=== PATIENT | male | born 1990 | race Caucasian/White ===

== ENCOUNTER 2017-02-21 01:20 | Emergency (ER) | payer SELFPAY ==
[~2017-02-21] VITALS: Ht 180.3 cm; Wt 68.0 kg
--- NOTE | ~2017-02-21 | CR72 ---
[facility] A Service of [facility] & [facility] RADIOLOGY TEXT RESULTS PATIENT: JEFFREY KWON LOCATION: [facility] : [birth year] UNIT #: [id number] AGE: [address]: Radhames Soriano DO SEX: M ORDER DR: [id number] [facility] [address] [place], [place] [address] [id number] E MR#: [id number] Acc #: [id number] NAME: JEFFREY KWON : 1990 SEX: M STUDY DATE/TIME: 02/21/2017 2:22 UNIT: [facility] ROOM: STUDY DESCRIPTION: CR Chest Single View Portable Attending Physician: Radhames Soriano D.O. Ordering Physician: Radhames Soriano D.O. Primary Care Physician: No Primary Care Physician MEDICAL IMAGING REPORT This report is preliminary unless electronic signature is present EXAM Chest x-ray 02/21/2017 HISTORY 26-year-old male in the ED after reported heroin overdose. Mental status changes. TECHNIQUE AP portable chest x-ray. FINDINGS The examination is negative. The lungs are expanded and clear. Heart size and pulmonary vascularity are normal. IMPRESSION Negative chest. Dictated by... Miguel Olivarez M.D. THIS IS AN ELECTRONICALLY VERIFIED REPORT Miguel Olivarez M.D. at 02/21/2017 9:48 PM KARTHIKEYANW/tashi TD: 02/21/2017 07:55 JOB #: [id number] MEDICAL IMAGING REPORT Page 1 of 1 COPY
--- NOTE | ~2017-02-21 | CT71 ---
[facility] A Service of [facility] & [facility] RADIOLOGY TEXT RESULTS PATIENT: JEFFREY KWON LOCATION: [facility] : [birth year] UNIT #: [id number] AGE: [address]: Radhames Soriano DO SEX: M ORDER DR: [id number] [facility] [address] [place], [place] [address] [id number] E MR#: [id number] Acc #: [id number] NAME: JEFFREY KWON : 1990 SEX: M STUDY DATE/TIME: 02/21/2017 2:56 UNIT: [facility] ROOM: STUDY DESCRIPTION: CT Head Wo Contrast Attending Physician: Radhames Soriano D.O. Ordering Physician: Radhames Soriano D.O. Primary Care Physician: Primary Care Physician No MEDICAL IMAGING REPORT This report is preliminary unless electronic signature is present EXAM CT head, noncontrast, 02/21/2017 HISTORY 26-year-old male in the ED after reported heroin overdose today. He is complaining of headaches. TECHNIQUE CT examination of the head without IV contrast. This CT examination was performed with one or more of the following radiation dose reduction techniques: automatic exposure control, adjustment of mA and/or kV according to patient size, and iterative reconstruction. FINDINGS The examination is negative. No evidence of intracranial hemorrhage, mass, mass effect, cerebral edema, hydrocephalus or additional abnormality. IMPRESSION Negative head CT examination. Dictated by... Miguel Olivarez M.D. THIS IS AN ELECTRONICALLY VERIFIED REPORT Miguel Olivarez M.D. at 02/21/2017 9:49 PM SEJAL/bryan TD: 02/21/2017 08:13 JOB #: [id number] MEDICAL IMAGING REPORT Page 1 of 1 COPY
[2017-02-21 02:47] LABS: POC - CKMB <1.0 ng/mL (0.0-7.9); POC - TROPONIN <0.05 ng/mL (<=0.05)
[2017-02-21 02:51] LABS: BASOPHIL# 0.1 X10e3 (0-0.3); BASOPHIL% 0.5 % (0-2.5); EOSINOPHIL# 0.1 X10e3 (0-0.7); EOSINOPHIL% 0.5 % (0.0-7.0); HEMATOCRIT 43.4 % (38.0-50.0); HEMOGLOBIN 14.5 gm/dL (13.0-16.0); LYMPHOCYTE# 1.9 X10e3 (1.0-3.5); LYMPHOCYTE% 10.9 % (17.0-45.0); MEAN CORPUSCULAR HEMOGLOBIN 29.4 PG (28-34); MEAN CORPUSCULAR HGB CONC 33.4 g/dL (30-36); MONOCYTE# 1.3 X10e3 (0-1.0); MONOCYTE% 7.6 % (3.0-12.0); NEUTROPHIL# 14.2 X10e3 (1.5-7.1); NEUTROPHIL% 80.5 % (40-75); PLATELET COUNT 280 X10e3 (140-420); RED BLOOD COUNT 4.93 X10e (3.90-5.60); RED CELL DISTRIBUTION WIDTH 12.4 % (11.0-15.5); WHITE BLOOD COUNT 17.6 X10e3 (4.0-10.5)
[2017-02-21 02:52] LABS: DIFF IND YES
[2017-02-21 03:22] LABS: ALBUMIN SERUM 3.9 g/dL (3.5-5.0); ALKALINE PHOSPHATASE 104 U/L (32-92); ALT (SGPT) 101 U/L (10-40); AST (SGOT) 72 U/L (10-42); BILIRUBIN, DIRECT 0.1 mg/dL (0.0-0.2); BILIRUBIN,INDIRECT 0.4 mg/dL (0.0-0.9); BILIRUBIN,TOTAL 0.5 mg/dL (0.2-2.0); BLOOD UREA NITROGEN 14 mg/dL (9-23); BUN/CREATININE RATIO 15.55; CALCIUM SERUM 9.2 mg/dL (8.4-10.2); CARBON DIOXIDE 27 mmol/L (22-31); CHLORIDE 102 mmol/L (100-111); CREATININE SERUM 0.9 mg/dL (0.6-1.4); GLOM FILT RATE Estimated 117.5 mL/min (>60); GLUCOSE FASTING 112 mg/dL (70-110); POTASSIUM 3.6 mmol/L (3.5-5.1); PROTEIN TOTAL SERUM 7.3 g/dL (6.0-8.3); SALICYLATE <4.0 mg/dL; SODIUM 138 mmol/L (135-145)
[2017-02-21 03:24] LABS: ACETAMINOPHEN <10 ug/mL; ALCOHOL BLOOD <5 mg/dL (0)
[2017-02-21 04:23] LABS: PLATELET ESTIMATE NORMAL (NORMAL)
[2017-02-21 04:24] LABS: RBC NORMAL YES
== END 2017-02-21 06:28 | disposition home or self-care (01) ==
LOC: CED 01:20
PROVIDERS: Emergency Medicine
DX: F11.10 Opioid abuse, uncomplicated (principal); R94.5 Abnormal results of liver function studies; F17.200 Nicotine dependence, unspecified, uncomplicated; Z79.899 Other long term (current) drug therapy
CPT/HCPCS: 36415; 70450; 71010; 80048; 80076; 82553; 84484; 85025; 99285; G0480

== ENCOUNTER 2017-02-21 12:58 | Emergency (ER) | payer SELFPAY ==
[~2017-02-21] VITALS: Ht 180.3 cm; Wt 68.0 kg
== END 2017-02-21 13:45 | disposition home or self-care (01) ==
LOC: CED 12:58
DX: F15.10 Other stimulant abuse, uncomplicated (principal); F17.210 Nicotine dependence, cigarettes, uncomplicated
CPT/HCPCS: 99284